=== PATIENT | female | born 1945 | race Caucasian/White ===

== ENCOUNTER 2017-07-17 07:12 | Day surgery (SDC) | payer OTHER, MEDICARE ==
[2017-07-17] MEDS ORDERED: Lidocaine 2% 5 ML SDV ONE (07:25)
[2017-07-17] MEDS ORDERED: Midazolam 1 MG/ML 2 ML SDV ONE (07:26)
[2017-07-17] MEDS ORDERED: fentaNYL 100 MCG/2 ML SDV ONE (07:26)
[2017-07-17] MEDS ORDERED: Propofol 200 MG/20 ML SDV ONE (07:26)
[2017-07-17] MEDS ORDERED: Ondansetron 4 MG/2 ML SDV ONE (07:26)
[2017-07-17] MEDS ORDERED: Bupivacaine 25%/EPINEPHrine/PF 30 ML ONE (07:32)
[2017-07-17] MEDS ORDERED: Octyl 2-Cyanoacrylate 1 Tube ONE (07:32)
[2017-07-17] MEDS ORDERED: Dexamethasone/Tobramycin 0.1-0.3% Ophth Oint 3.5 GM Tube ONE (07:32)
--- NOTE | 2017-07-17 07:41 | PCM.PREANE ---
Preanesthetic Assessment - Anesthesia/Transfusion/Family Hx Anesthesia History: Prior Anesthesia Without Reaction Family History of Anesthesia Reaction: No Transfusion History: Prior Transfusion Without Reaction Intubation History: Unknown - Review of Systems General: No Symptoms Pulmonary: No Symptoms Cardiovascular: No Symptoms Gastrointestinal: No Symptoms Neurological: No Symptoms Other: Reports: None - Physical Assessment O2 Sat by Pulse Oximetry: 95 Respiratory Rate: 16 Vital Signs: Last Vital Signs Temp 36.6 C 07/17/17 07:28 Pulse 54 L 07/17/17 07:28 Resp 16 07/17/17 07:28 BP 142/87 H 07/17/17 07:28 Pulse Ox 95 07/17/17 07:28 Height: 1.5 m Weight: 85.275 kg ASA Class: 2 Mental Status: Alert & Oriented x3 Airway Class: Mallampati = 2 Dentition: Reports: Normal Dentition Thyro-Mental Finger Breadths: 2 Mouth Opening Finger Breadths: 3 ROM/Head Extension: Full Lungs: Clear to Auscultation, Normal Respiratory Effort Cardiovascular: Regular Rate, Regular Rhythm - Allergies Allergies/Adverse Reactions: Allergies Allergy/AdvReac Type Severity Reaction Status Date / Time codeine Allergy Nausea and Verified 07/15/17 08:17 Vomiting - Blood Blood Available: No - Anesthesia Plan Pre-Op Medication Ordered: None Beta Neil: Metoprolol Med Last Dose Date: 07/17/17 Med Last Dose Time: 06:30 - Acknowledgements Anesthesia Type Planned: MAC Pt an Appropriate Candidate for the Planned Anesthesia: Yes Alternatives and Risks of Anesthesia Discussed w Pt/Guardian: Yes Pt/Guardian Understands and Agrees with Anesthesia Plan: Yes PreAnesthesia Questionnaire HEENT History: Reports: Other (See Below) Other HEENT History: wears glasses, has neil hearing aids Cardiovascular History: Reports: High Cholesterol, Hypertension Gastrointestinal History: Reports: Other (See Below) Other Gastrointestinal History: occasional heartburn Genitourinary History: Reports: None 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: Musculoskeletal History: Reports: Arthritis Endocrine/Metabolic History: Reports: Obesity/BMI 30+ Hematologic History: Reports: Blood Transfusion(s) Dermatologic History: Reports: Other (See Below) Other Dermatologic History: dermatitis to hands - Past Surgical History Head Surgeries/Procedures: Reports: None HEENT Surgical History: Reports: Cataract Surgery, Tonsillectomy GI Surgical History: Reports: Cholecystectomy Female Surgical History: Reports: Hysterectomy Musculoskeletal Surgical History: Reports: Other (See Below) Other Musculoskeletal Surgeries/Procedures:: hx rt bunionectomy - SUBSTANCE USE Smoking Status *Q: Never Smoker Recreational Drug Use History: No - HOME MEDS Home Medications: Home Meds Aspirin [[place] Aspirin] 81 mg PO DAILY 07/15/17 [History] Clobetasol [Clobetasol 0.05%] 1 applic TOP ASDIRECTED PRN 07/15/17 [History] Diclofenac Sodium [Voltaren] 75 mg PO BID 07/15/17 [History] Losartan/Hydrochlorothiazide [Losartan-HCTZ 100-25 MG] 1 tab PO DAILY 07/15/17 [ History] Metoprolol Tartrate 100 mg PO DAILY 07/15/17 [History] Pravastatin Sodium 20 mg PO DAILY 07/15/17 [History] Spironolactone [Aldactone] 25 mg PO DAILY 07/15/17 [History] - CURRENT (IN HOUSE) MEDS Current Meds: Current Medications Bupivacaine HCl/Epinephrine Bitart (Marcaine 0.25%/Epinephrine 1:200,000) 10 ml INJECT ONETIME ONE Stop: 07/17/17 08:01 Cefazolin Sodium/Dextrose 2 gm (/ Premix) 50 mls @ 100 mls/hr IV ONETIME ONE Stop: 07/17/17 08:29 Lactated Ringer's (Ringers, Lactated) 1,000 mls @ 125 mls/hr IV ASDIRECTED DAYANNA Last Admin: 07/17/17 07:30 Dose: 125 mls/hr Tobramycin/Dexamethasone (Tobradex Ophth Susp) 1 ml EYEBOTH ONETIME ONE Stop: 07/17/17 08:01 Tramadol HCl (Ultram) 50 mg PO Q4H PRN PRN Reason: pain Discontinued Medications Bupivacaine HCl/Epinephrine Bitart (Marcaine 0.25%/Epinephrine 1:200,000) 10 ml INJECT ONETIME ONE Stop: 07/19/17 08:01 Fentanyl (Sublimaze) Confirm Administered Dose 100 mcg .ROUTE .STK-MED ONE Stop: 07/17/17 07:27 Bupivacaine HCl/Epinephrine Bitart (Sensorc Mpf 0.25%-Epi [id number]) Confirm Administered Dose 30 mls @ as directed .ROUTE .STK-MED ONE Stop: 01/10/18 07:33 Lidocaine (Xylocaine-Mpf 2%) Confirm Administered Dose 5 ml .ROUTE .STK-MED ONE Stop: 07/17/17 07:26 Midazolam HCl (Versed 1 Mg/Ml) Confirm Administered Dose 2 mg .ROUTE .STK-MED ONE Stop: 07/17/17 07:27 Octyl Cyanoacrylate (Dermabond Advance) Confirm Administered Dose 1 applic .ROUTE .STK-MED ONE Stop: 07/17/17 07:33 Ondansetron HCl (Zofran) Confirm Administered Dose 4 mg .ROUTE .STK-MED ONE Stop: 07/17/17 07:27 Propofol (Diprivan 20 Ml) Confirm Administered Dose 200 mg .ROUTE .STK-MED ONE Stop: 07/17/17 07:27 Tobramycin/Dexamethasone (Tobradex Ophth Oint) Confirm Administered Dose 3.5 gm .ROUTE .STK-MED ONE Stop: 07/17/17 07:33
[2017-07-17] MEDS ORDERED: Bupivacaine 0.25%/EPINEPHrine 1:200,000 10 ML SDV INJECT ONE (08:00)
[2017-07-17] MEDS ORDERED: Lactated Ringers 1,000 ML IV SCH (08:00)
[2017-07-17] MEDS ORDERED: traMADol 50 MG Tab PO PRN (08:00)
[2017-07-17] MEDS ORDERED: ceFAZolin 2 GM in Premix Bag 1 BAG IV ONE (08:00)
[2017-07-17] MEDS ORDERED: Dexamethasone/Tobramycin 0.1-0.3% Ophth Susp 2.5 ML Bottle EYEBOTH ONE (08:00)
[2017-07-17] MEDS ORDERED: fentaNYL 100 MCG/2 ML SDV IVPUSH PRN (09:45)
--- NOTE | 2017-07-17 09:52 | PCM.OPNOTE ---
- General Post-Op/Procedure Note Date of Surgery/Procedure: 07/17/17 Operative Procedure(s): bilateral blepharoplasties for excess skin of upper lids. Pre Op Diagnosis: bilateral upper lid dermatochalasis Post-Op Diagnosis: Same Anesthesia Technique: Local, MAC Primary Surgeon: Jaqui Sotomayor Complications: None Condition: Good
--- NOTE | 2017-07-17 18:54 | OR ---
SURGEON: TOMMIE MARTINO MD DATE OF PROCEDURE: 07/17/2017 PREOPERATIVE DIAGNOSIS: Bilateral upper lid dermatochalasis. POSTOPERATIVE DIAGNOSIS: Bilateral upper lid dermatochalasis. PROCEDURE: Bilateral upper lid blepharoplasties for excess skin. SACK SORTER: None. ANESTHESIA: Local MAC. INDICATIONS: Ms. Leblanc is a 72-year-old female with visual obstruction due to excess overhanging skin. Risks and benefits for blepharoplasties were discussed with her and she was in agreement to proceed. Risks were including, but not limited to, bleeding, infection, damage to underlying or overlying structures, possible need for future interventions, possible scarring. PROCEDURE IN DETAIL: After informed consent was obtained and placed on the chart, the patient was brought to the operating theater and laid in supine position. After adequate local MAC anesthesia was obtained, the area was prepped and draped and a time- out was completed to confirm side and site. Attention was then paid to marking of the upper eyelid skin excess and once adequately marked, the area was injected with local in a field block. Once adequately injected, attention was then paid to excision of the excess eyelid skin and meticulous hemostasis of the muscle and the skin using Bovie electrocautery. Once adequately hemostasis, the wound was closed with a single deep 5-0 Monocryl stitches and a running 6-0 Prolene for the skin. These were taken in place using the Steri-Strips. All counts and needles were correct at the end of the case. The patient tolerated the procedure well. FOLLOWUP INSTRUCTIONS: The patient will see us in 1 week, sooner if any problems, questions, or concerns. [id number] / PHI /[id number]
[2017-07-19] MEDS ORDERED: Bupivacaine 0.25%/EPINEPHrine 1:200,000 10 ML SDV INJECT ONE (08:00)
== END 2017-07-17 11:10 | disposition home or self-care (01) ==
LOC: MW.SDS 07:12
PROVIDERS: ATTEND Plastic Surgery
DX: H02.834 Dermatochalasis of left upper eyelid (principal); H02.831 Dermatochalasis of right upper eyelid; E78.00 Pure hypercholesterolemia, unspecified; I10 Essential (primary) hypertension; M19.90 Unspecified osteoarthritis, unspecified site; E66.9 Obesity, unspecified; Z90.89 Acquired absence of other organs; Z88.5 Allergy status to narcotic agent; Z79.899 Other long term (current) drug therapy; Z68.37 Body mass index [BMI] 37.0-37.9, adult; Z90.49 Acquired absence of other specified parts of digestive tract; Z98.890 Other specified postprocedural states; Z79.82 Long term (current) use of aspirin
CPT/HCPCS: 15822; J2250; J2405; J3010; J7120; 00103; A9270-GY; J2704